=== PATIENT | male | born 1995 | race Caucasian/White ===

== ENCOUNTER 2016-12-31 18:25 | Emergency (ER) | payer OTHER ==
[~2016-12-31] VITALS: Ht 162.6 cm; Wt 74.5 kg
[2016-12-31 18:34] VITALS: Ht 162.6 cm; Wt 74.5 kg
--- NOTE | 2016-12-31 19:01 | QN ---
Documentation Comment This 21-year-old male presents here in emergency department for right eye redness started 3 days ago, patient was in the primary care doctor, was given eye drops, did not help, patient continues to of eye redness, irritation, burning pain 4/10 scale, accompanied with tearing. Patient is a deformity sensation in the eye, patient denies any vision changes, patient denies any eye discharge. Upon initial evaluation in [facility], patient may need further evaluation, possible fluorescein dye test to rule out corneal abrasion or any foreign body since there is no discharge in the eye, patient needs further evaluation, waiting for ER 2 bed at this time. RENE FRENCH NP December 31, 2016 19:01
--- NOTE | 2016-12-31 19:48 | ERD ---
ER Documentation Chief Complaint Date/Time DATE: 12/31/16 TIME: 19:41 Chief Complaint right eye redness and irritation x 5 days HPI This pleasant 21-year-old male patient presents to emergency department today with right eye irritation, discharge. Patient is Portuguese-speaking, brought in by cousin who is available for translation, reports that symptoms started 5 days ago, he has been seen by his primary physician, prescribes over-the- counter allergy eyedrops. Patient has been using medication with little relief of symptoms. Patient works in construction, play soccer, is around dust and allergens, denies any injury or sensation of foreign body. ROS All systems reviewed and are negative except as per history of present illness. Medications Home Meds Active Scripts Doxycycline Hyclate* (Doxycycline Hyclate*) 100 Mg Tablet.dr, 100 MG PO BID for 10 Days, TAB Prov:KELSEY,LUIS E 12/31/16 Sulfacetamide Sodium* (Bleph-10*) 10%-15 Ml Opht Drops, 1 DROP BOTH EYES Q4H WHILE AWAKE for 7 Days, #1 EA Prov:KELSEY,LUIS E 12/31/16 PMhx/Soc Medical and Surgical Hx: pt denies Medical Hx, pt denies Surgical Hx Hx Alcohol Use: No Hx Substance Use: No Hx Tobacco Use: No Smoking Status: Never smoker Physical Exam Vitals Vital Signs Date Time Temp Pulse Resp B/P Pulse Ox O2 Delivery O2 Flow Rate FiO2 12/31/16 18:34 98.7 81 18 133/67 97 Physical Exam Const: No acute Head: Atraumatic Eyes: Eye Exam: Visual Acuity: Right 20/13 Left 20/20 Both 20/13 Visual Amanda: Intact in all four quadrants bilaterally Lac ducts/glands: No swelling Lids w/ evertion: Normal, no foreign body Conj/[place]: Right eye injected, discharge noted in the lashes and caruncle Optic fundi no papilla edema, no AV nicking ENT: Normal External Ears, Nose and Mouth. Neck: Full range of motion..~ No meningismus. Resp: Chest rises and falls symmetrically, clear to auscultation bilaterally no respiratory distress Cardio: Regular rate and rhythm, no murmurs Abd: Soft, non tender, non distended. Normal bowel sounds Skin: Orchards erythema surrounding right eye and right maxillary bone Back: Ext: Neur: Awake and alert Psych: Normal Mood and Affect Procedures/MDM This pleasant Portuguese-speaking 21-year-old male patient presents to emergency department today for worsening of red irritated right eye with discharge. 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 Patient has been using drops as prescribed with no improvement of symptoms. Patient reports is worse now than it was originally. Blepharitis, stye, iritis not suspected. Patient denies any injury no orbital fracture or glaucoma suspected. Patient's vision is above normal without glasses. Patient will be discharged with prescription of sulfacetamide ophthalmic solution and doxycycline for bacterial conjunctivitis with secondary skin infection. Return to emergency department for worsening of symptoms, lid swelling, change in vision, worsening or spreading of facial erythema. I feel the patient is stable for discharge at this time with outpatient management by primary care physician. I have discussed results, examination findings, the treatment plan with the patient and family present prior to discharge. Indications for emergent reevaluation, side effects of medication were also discussed. All questions were answered. Patient verbalizes understanding and agrees with plan of care. Departure Diagnosis: Primary Impression: Acute bacterial conjunctivitis Laterality: right Qualified Code: H10.31 - Acute bacterial conjunctivitis of right eye Patient Instructions: Conjunctivitis Caused by Infection Additional Instructions: Thank you for for coming to [facility] for your care today. Please ask your nurse or provider if you have questions about your care today and do not leave until all your questions have been answered. Please use any medications given as directed and follow-up with your doctor (or the doctor you were referred to) in the next 2-3 days. If you do not have a primary care doctor you may follow up at the [facility] (listed below). You may also use motrin and tylenol as needed for fever and/or pain unless instructed otherwise by your provider or nurse. Indications for more urgent follow-up have been discussed, but you may return to the Emergency Department at ANY time for any worrisome or worsening symptoms. If you have abdominal pain, please know that no test or exam you received is perfect and you should follow up within 8 hours for continued pain. If you had any imaging studies today, such as an X-Ray or CT Scan, these studies will be reviewed later by a radiologist. You will be called if there are important findings that were not identified today, so make sure the contact information you provided at registration is correct. If you received any narcotic pain control medicine today, such as Vicodin, Morphine or Dilaudid, your coordination and judgment may be affected for a number of hours. Please do not drive or operate heavy machinery, and you may want someone to assist you at home. If you were given a prescription for narcotic medication, be aware that it is very addictive- use sparingly and only if necessary. LUIS E COLE December 31, 2016 19:48
[2016-12-31] MEDS ORDERED: DOXY100T20 PO (19:49)
[2016-12-31] MEDS ORDERED: SULF15DR19 BOTH EYES (19:49)
== END 2016-12-31 19:55 | disposition home or self-care (01) ==
LOC: FTE 18:25
DX: H10.31 Unspecified acute conjunctivitis, right eye (principal)
CPT/HCPCS: 99284